=== PATIENT | male | born 1975 | race Hispanic/Latino ===

== ENCOUNTER 2017-08-17 10:31 | Observation (INO) | payer BC, OTHER ==
[2017-08-17 11:20] LABS: BASO # 0.03 K/mm3 (0.0-2.0); BASO % 0.6 % (0.0-3.0); EOS % 0.8 % (1.5-5.0); GRAN # 2.91 (1.4-6.5); HEMOGLOBIN 14.8 g/dL (14.0-18.0); LYMPH # 1.5 (1.2-3.4); LYMPH % 29.9 % (22.0-35.0); MEAN CELL VOLUME 84.4 fl (80.0-105.0); MEAN CORPUSCULAR HEMOGLOBIN 29.5 pg (25.0-35.0); MEAN PLATELET VOLUME 10.9 fl (7.0-11.0); MONO # 0.4 (0.1-0.6); MONO % 8.7 % (1.0-6.0); RBC 5.01 10^6/uL (3.5-6.1); RED CELL DISTRIBUTION WIDTH 12.4 % (11.5-14.5); WHITE BLOOD COUNT 4.9 10^3/ul (4.5-11.0)
[2017-08-17 11:29] LABS: ALB/GLOB RATIO 1.4 (1.1-1.8); ALBUMIN 4.6 g/dL (3.0-4.8); ALT/SGPT 41 U/L (7-56); AST/SGOT 29 U/L (17-59); BLOOD UREA NITROGEN 12 mg/dL (7-21); CALCIUM 9.3 mg/dL (8.4-10.5); GFR AFRICAN-AMERICAN > 60; GFR NON-AFRICAN AMERICAN > 60
--- NOTE | 2017-08-17 11:34 | ED PDOC ---
Arrival/HPI - General Chief Complaint: Chest Pain Time Seen by Provider: 08/17/17 11:06 Historian: Patient - History of Present Illness Narrative History of Present Illness (Text): 08/17/17 11:10 Alannah Lindsay is a 41 year old male who presents to the emergency department complaining of a 20 minute episode of dizziness, lightheadedness, diaphoresis, and palpitations that occurred at work prior to arrival. Patient notes that he has had similar episode which resulted in a hospital visit during which he underwent a cardiac angiogram and was told that he was going to have a stent placed but eventually decided against by the convict guard. Patient notes that both his father and mother passed due to MIs in their 50s. Patient denies any fevers, chills, chest pain, abdominal pain, nausea, vomiting, diarrhea, back pain, neck pain, urinary symptoms, or any other complaint. Time/Duration: 1 hour Symptom Onset: Gradual Symptom Course: Unchanged Activities at Onset: Light Context: Home Past Medical History - Provider Review Nursing Documentation Reviewed: Yes - Cardiac Hx Cardiac Disorders: Yes Hx Hypertension: Yes - Psychiatric Hx Substance Use: Yes - Surgical History Hx Musculoskeletal Surgery: Yes (left wrist surgery) - Anesthesia Hx Anesthesia: Yes Hx Anesthesia Reactions: No Hx Malignant Hyperthermia: No Family/Social History - Physician Review Nursing Documentation Reviewed: Yes Family/Social History: No Known Family HX Smoking Status: Never Smoked Hx Alcohol Use: Yes Frequency of alcohol use: Socially Hx Substance Use: Yes Substance used: marijuana Allergies/Home Meds Allergies/Adverse Reactions: Allergies No Known Allergies Allergy (Verified 08/17/17 10:39) Home Medications: Home Meds Medication Instructions Recorded Confirmed Aspirin [[place] Aspirin] 81 mg PO DAILY 08/17/17 08/17/17 Ramipril [Altace] 5 mg PO HS 08/17/17 08/17/17 Review of Systems - Physician Review All systems were reviewed & negative as marked: Yes - Review of Systems Constitutional: absent: Fevers, Night Sweats Eyes: absent: Vision Changes ENT: absent: Hearing Changes Respiratory: SOB Cardiovascular: Palpitations. absent: Chest Pain Gastrointestinal: absent: Abdominal Pain Genitourinary Male: absent: Dysuria Musculoskeletal: absent: Arthralgias Skin: absent: Rash Neurological: Headache, Dizziness Endocrine: Diaphoresis Hemo/Lymphatic: absent: Adenopathy Psychiatric: absent: Anxiety, Depression Physical Exam - Physical Exam Narrative Physical Exam (Text): Constitutional: No acute distress. Head: Normocephalic. Atraumatic. Eyes: PERRL. ENT: Moist mucous membranes. Neck: Supple. Cardiovascular: Regular rate. Chest: No tenderness. Respiratory: Clear to auscultation bilaterally. GI: Soft. Nontender. Nondistended. Back: No CVA tenderness. Musculoskeletal: No tenderness or swelling of extremities. Skin: No rash. Neurologic: Alert, no focal deficit. Vital Signs Reviewed: Yes Vital Signs Temp Pulse Resp BP Pulse Ox 08/17/17 10:32 98.2 F 76 18 132/90 98 Temperature: Afebrile Blood Pressure: Normal Pulse: Regular Respiratory Rate: Normal Appearance: Positive for: Well-Appearing, Non-Toxic, Comfortable Pain Distress: None Mental Status: Positive for: Alert and Oriented X 3 Medical Decision Making ED Course and Treatment: Impression: 41 year old male complaining of a 20 minute episode of dizziness, lightheadedness, diaphoresis, and palpitations that occurred at work prior to arrival. Plan: -- Chest X-ray -- Labs -- Aspirin -- Reassess and disposition Progress Notes: 08/17/17 13:13 Chest X-ray: Creator : Atilio Keller MD FINDINGS: LUNGS:No active pulmonary disease. PLEURA:No significant pleural effusion identified, no pneumothorax apparent. CARDIOVASCULAR:Normal. OSSEOUS STRUCTURES:No significant abnormalities. VISUALIZED UPPER ABDOMEN:Normal. OTHER FINDINGS:None. IMPRESSION: No active disease. EKG NSR 80 bpm, no ST/T wave changes. Dr. Espino accepts patient to medical service and recommends Dr. Barba for consultation. - Lab Interpretations Lab Results: 08/17/17 11:10 08/17/17 11:10 Lab Results 08/17/17 11:10: Sodium 141, Potassium 4.2, Chloride 102, Carbon Dioxide 27, Anion Gap 17, BUN 12, Creatinine 0.9, Est GFR ( Amer) > 60, Est GFR (Non- Af Amer) > 60, Random Glucose 85, Calcium 9.3, Total Bilirubin 0.8, AST 29, ALT 41, Alkaline Phosphatase 71, Total Creatine Kinase 114, Troponin I < 0.01, Total Protein 7.8, Albumin 4.6, Globulin 3.2, Albumin/Globulin Ratio 1.4 08/17/17 11:10: WBC 4.9, RBC 5.01, Hgb 14.8, Hct 42.3, MCV 84.4, MCH 29.5, MCHC 35.0, RDW 12.4, Plt Count 256, MPV 10.9, Gran % 60.0, Lymph % (Auto) 29.9, Evans % (Auto) 8.7 H, Eos % (Auto) 0.8 L, Baso % (Auto) 0.6, Gran # 2.91, Lymph # ( Auto) 1.5, Evans # (Auto) 0.4, Eos # (Auto) 0.0, Baso # (Auto) 0.03 I have reviewed the lab results: Yes - RAD Interpretation Radiology Orders: 08/17/17 11:12 CHEST PORTABLE [RAD] Stat - Medication Orders Current Medication Orders: Discontinued Medications Aspirin (Aspirin) 325 mg PO STAT STA Stop: 08/17/17 11:13 Last Admin: 08/17/17 11:30 Dose: 325 mg - Scribe Statement The provider has reviewed the documentation as recorded by the Fidel Vazquez Provider Scribe Attestation: All medical record entries made by the Fidel were at my direction and personally dictated by me. I have reviewed the chart and agree that the record accurately reflects my personal performance of the history, physical exam, medical decision making, and the department course for this patient. I have also personally directed, reviewed, and agree with the discharge instructions and disposition. Disposition/Present on Arrival - Present on Arrival Any Indicators Present on Arrival: No History of DVT/PE: No History of Uncontrolled Diabetes: No Urinary Catheter: No History of Decub. Ulcer: No History Surgical Site Infection Following: None - Disposition Have Diagnosis and Disposition been Completed?: Yes Diagnosis: Chest pain Disposition: HOSPITALIZED Disposition Time: 12:00 Patient Plan: Observation, Telemetry Condition: FAIR
[2017-08-17 11:40] LABS: TROPONIN I < 0.01 ng/mL
--- NOTE | 2017-08-17 12:27 | RAD ---
HISTORY: chest pain COMPARISON: No prior. FINDINGS: LUNGS: No active pulmonary disease. PLEURA: No significant pleural effusion identified, no pneumothorax apparent. CARDIOVASCULAR: Normal. OSSEOUS STRUCTURES: No significant abnormalities. VISUALIZED UPPER ABDOMEN: Normal. OTHER FINDINGS: None. IMPRESSION: No active disease.
[2017-08-17 14:27] LABS: HDL CHOLESTEROL 47 mg/dL (29-60)
[2017-08-17 14:37] LABS: LDL CHOLESTEROL 169 mg/dL (0-129)
[2017-08-17 15:35] VITALS: BMI 27.2
[2017-08-17] MEDS: Metoprolol Succinate 25 mg XL Tab PO SCH (18:10)
--- NOTE | 2017-08-17 21:36 | CON ---
DATE: 08/17/2017 CARDIOLOGY CONSULTATION HISTORY OF PRESENT ILLNESS: The patient is a is a 41-year-old male who experienced substernal pressure while working, associated with diaphoresis. The symptoms were sudden in onset. PAST MEDICAL HISTORY: Includes cardiac risk factors including hypertension, hypercholesterolemia as well as a strong family history for CAD with both mother and father with coronary artery disease. His hypertension has been treated with medication. His cholesterol is not being treated given the patient's intolerance to statin therapy. The patient underwent cardiac catheterization several years ago at [facility] for similar symptoms in which they report there was no significant coronary artery disease. SOCIAL HISTORY: The patient does not smoke. REVIEW OF SYSTEMS: A 14 point review of systems is reviewed in detail. No additional symptoms are noted. PHYSICAL EXAMINATION: VITAL SIGNS: Stable, heart rates in the 70s. NECK: Negative JVD. LUNGS: Without rales. HEART: Reveals S1, S2. EXTREMITIES: Without edema. EKG is unremarkable. Troponin is negative x1. IMPRESSION: 1. Angina at rest. 2. High probability for coronary artery disease. 3. Hypertension. 4. Hypercholesterolemia. 5. Strong family history for coronary artery disease. Given these findings, I have discussed therapeutic or diagnostic options with the patient. Given his symptoms at rest and increased risk factors, I have offered the patient cardiac catheterization. The patient and his refused at this time and and choose to have any further testing done at [facility]. They agreed to wait until the morning where serial troponins can be completed. Atilio Barba MD
--- NOTE | 2017-08-17 23:37 | CARD ---
APPROVED REPORT EKG Measurement Heart [id number] <Conclusion> Normal sinus rhythm Normal ECG
--- NOTE | 2017-08-18 01:44 | HP ---
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 Today at work, he had episode of chest pressure and chest discomfort, became lightheaded, diaphoretic and started to have palpitations. It happened at work. By the time, he came to emergency room, he was feeling better. The patient states he had similar episode a year ago, at that point, he was taken to [place] and had cardiac cath done. Initial plan was to have angioplasty, but then it was declined. The patient states he has been fair since then. No history of fever. No chills. No history of chest trauma. No nausea, vomiting. No diarrhea. No hemoptysis. No hematemesis. PAST MEDICAL HISTORY: Significant for hypertension. PAST SURGICAL HISTORY: Significant for left wrist surgery in past. SOCIAL HISTORY: He socially drinks and smokes. FAMILY HISTORY: Significant for mom and dad having heart issues at early age and he does admit using marijuana at times. ALLERGY: HE IS NOT ALLERGIC TO ANY MEDICATION. MEDICATION AT HOME: He is on aspirin 81 daily and Ramipril 5 mg daily. PHYSICAL EXAMINATION: GENERAL: He is awake, alert, oriented, communicative. VITAL SIGNS: He is afebrile. Pulse 76, respirations 18, blood pressure 130/90. LUNGS: Bilateral good air flow. No rhonchi or crackle. HEART: S1 and S2 audible. ABDOMEN: Soft. Nontender. No rebound. No guarding. NEUROLOGICAL: The patient is awake, alert, oriented, and communicative. LABORATORY EXAM: WBC is 4.9, hemoglobin 14, hematocrit 42, platelets 256. Chemistry: Sodium 141, potassium 4.2, chloride 102, CO2 is 27, BUN 12, creatinine 0.9 Blood sugar of 85. LFTs are within normal limits. Troponin 0.01. Chest x-ray is negative. ASSESSMENT: 1. Chest pain, rule out coronary ischemia. 2. History of hypertension. 3. Strong family history of myocardial infarction. PLAN: So the plan is the patient is going to be placed on observation . We will followup cardiac enzymes, start him on aspirin. Cardiology consult by Dr. Barba has been requested and awaiting input. Paige Espino MD
[2017-08-18 03:42] LABS: TROPONIN I < 0.01 ng/mL
[2017-08-18 03:48] LABS: FREE T4 1.01 ng/dL (0.78-2.19)
[2017-08-18 04:16] LABS: ALB/GLOB RATIO 1.4 (1.1-1.8); ALBUMIN 4.5 g/dL (3.0-4.8); ALT/SGPT 44 U/L (7-56); AST/SGOT 28 U/L (17-59); BLOOD UREA NITROGEN 15 mg/dL (7-21); CALCIUM 9.2 mg/dL (8.4-10.5); GFR AFRICAN-AMERICAN > 60; GFR NON-AFRICAN AMERICAN > 60
[2017-08-18 07:12] VITALS: BP 109/71; PULSE 59; RESP 20; TEMP 98.1; O2SAT 98
[2017-08-18] MEDS: Metoprolol Succinate 25 mg XL Tab PO SCH (08:23)
--- NOTE | 2017-08-18 12:54 | PN ---
DATE: 08/18/2017 CARDIOLOGY FOLLOWUP SUBJECTIVE: The patient is chest pain free. PHYSICAL EXAMINATION: VITAL SIGNS: Blood pressure is 109/71, the heart rates in the 60s. NECK: Negative JVD. LUNGS: Without rales. HEART: Reveals S1, S2. EXTREMITIES: Without edema. LABORATORY DATA: Troponins are negative x3. Cholesterol is 268 with an LDL of 169. IMPRESSION: 1. Transient chest pain. 2. No evidence for acute coronary syndrome. 3. Hypercholesterolemia. 4. Transient diaphoresis. PLAN: Given these findings, there is no evidence for acute coronary syndrome. At the request of the patient and his , they would like to continue his cardiac care either at [facility] or with a local press writer in [place]. They do not want any further cardiac testing here. I have discussed with them about the need to be aggressive in terms of lowering his cholesterol and they agreed to call his private doctor to discuss the issue about statin therapy. They will be discharged today. Atilio Barba MD
== END 2017-08-18 10:30 | disposition home or self-care (01) ==
LOC: ED 10:31 → ERH 13:00 → 2RNO 14:28
PROVIDERS: ADMIT Internal Medicine; ATTEND Internal Medicine
DX: I20.9 Angina pectoris, unspecified (principal); I10 Essential (primary) hypertension; R00.2 Palpitations; E78.00 Pure hypercholesterolemia, unspecified; Z82.49 Family history of ischemic heart disease and other diseases of the circulatory system
CPT/HCPCS: 36415; 71045; 80053; 80061; 82550; 83036; 84439; 84443; 84484; 85025; 93005; 99285; G0378